=== PATIENT | female | born 1960 | race African-American/Black ===

== ENCOUNTER 2019-03-28 16:56 | Emergency (ER) | payer SELFPAY ==
[~2019-03-28] VITALS: Ht 157.5 cm; Wt 74.4 kg
[2019-03-28 17:35] VITALS: BP 141/93
--- NOTE | 2019-03-28 17:35 | NUR ---
ED Nurse Note: pt walked in to Ed due to SOB and asthma attack for 3 days. per pt, run out of inhaler. wheezing audiable. RT called for breathing tx. AAO x4. respirations even and non-labored noted. maintained >94% in RA. will wait for the further order.
[2019-03-28] MEDS: Albuterol/Ipratropium 3ml neb HHN SCH ×3 (18:03→18:24)
--- NOTE | 2019-03-28 18:14 | Emergency Room Report ---
History of Present Illness General Chief Complaint: Asthma Source: Patient Present Illness HPI 58-year-old female with significant history of asthma here complaining of asthma exacerbation she has run out of her albuterol inhaler. Patient is actively wheezing however denies cough and congestion. Denies fever and chills , palpitation, chest pain. Also complains of a pruritic and burning sensation rash on the right upper back x4 days. Reports that she had a tingling sensation prior to the appearance of rash. Denies pain radiation, and has not taken medication for symptom relief. Allergies: Coded Allergies: CITRIC ACID (Verified Allergy, Unknown, 03/28/19) CODEINE (Verified Allergy, Unknown, 03/28/19) Patient History Past Medical History: see triage record Past Surgical History: unable to obtain Pertinent Family History: none Last Menstrual Period: a year ago Now: No Immunizations: UTD Reviewed Nursing Documentation: PMH: Agreed; PSxH: Agreed Nursing Documentation-PMH Past Medical History: No History, Except For Hx Asthma: Yes Review of Systems All Other Systems: negative except mentioned in HPI Physical Exam Vital Signs Date Time Temp Pulse Resp B/P (MAP) Pulse Ox O2 Delivery O2 Flow Rate FiO2 03/28/19 17:28 98.4 83 16 141/93 (109) 95 Room Air 03/28/19 18:01 21 Sp02 EP Interpretation: reviewed, normal General Appearance: no apparent distress, alert, GCS 15, non-toxic Head: normocephalic, atraumatic Eyes: bilateral eye normal inspection, bilateral eye PERRL ENT: hearing grossly normal, normal pharynx, no angioedema, normal voice Neck: full range of motion, supple, thyroid normal, no meningismus, supple/symm /no masses Respiratory: chest non-tender, no rhonchi, no retraction, no accessory muscle use, speaking full sentences, wheezing - Diffuse Cardiovascular #1: regular rate, rhythm, no edema, no murmur Gastrointestinal: normal bowel sounds, non tender, soft, non-distended, no guarding, no rebound Genitourinary: no CVA tenderness Musculoskeletal: back normal, gait/station normal, normal range of motion, non- tender, no calf tenderness Neurologic: normal inspection, alert, oriented x3 Psychiatric: judgement/insight normal, memory normal, mood/affect normal, no suicidal/homicidal ideation Skin: rash - Multiple vesicles on erythematous base noted on right upper back Lymphatic: normal inspection, no adenopathy Medical Decision Making PA Attestation All diagnoses and treatment plans were reviewed and discussed with my supervising physician Dr. Sam Diagnostic Impression: Primary Impression: Asthma exacerbation Additional Impression: Shingles ER Course 58-year-old female with significant history of asthma here complaining of asthma exacerbation she has run out of her albuterol inhaler. Patient is actively wheezing however denies cough and congestion. Denies fever and chills , palpitation, chest pain. Also complains of a pruritic and burning sensation rash on the right upper back x4 days. Reports that she had a tingling sensation prior to the appearance of rash. Denies pain radiation, and has not taken medication for symptom relief. Ddx considered but are not limited to: Asthma observation, bronchitis, PNA, URI viral, bacterial bronchitis, shingles, scabies, contact dermatitis Vital signs: are WNL, pt. is afebrile H&PE are most consistent with: Asthma exacerbation, shingles ORDERS: Acyclovir, albuterol inhaler, prednisone ED INTERVENTIONS: DuoNeb, prednisone DISCHARGE: At this time pt. is stable for d/c to home. Will provide printed patient care instructions, and any necessary prescriptions. Care plan and follow up instructions have been discussed with the patient prior to discharge. Patient to follow-up with primary care provider, take medication as directed, if worsening symptoms return to the emergency room. At this time no chest x- ray is needed as patient been coughing and just very faint diffuse wheezing noted. Last Vital Signs Date Time Temp Pulse Resp B/P (MAP) Pulse Ox O2 Delivery O2 Flow Rate FiO2 03/28/19 18:01 79 18 95 Room Air 21 03/28/19 17:35 98.4 141/93 Disposition: HOME, SELF-CARE Condition: Stable Scripts Prednisone* (PREDNISONE*) 20 Mg Tablet 40 MG ORAL DAILY for 5 Days, #10 TAB Prov: Elisa Shelton 03/28/19 Albuterol Sulfate (VENTOLIN HFA) 18 Gm Hfa.aer.ad 2 PUFFS INH EVERY 6 HOURS, #18 GM 0 Refills Prov: Elisa Shelton 03/28/19 Acyclovir* (ZOVIRAX*) 800 Mg Tablet 800 MG ORAL FIVE TIMES A DAY for 7 Days, #35 TAB Prov: Elisa Shelton 03/28/19 Patient Instructions: Asthma, Adult, Shingles, [id number] Additional Instructions: Take medication as directed, follow-up with your primary care provider, if worsening symptoms return to the emergency room Elisa Shelton Mar 28, 2019 18:13
[2019-03-28] MEDS ORDERED: VENTOLIN HFA18 GM INH (18:15)
[2019-03-28] MEDS ORDERED: ACYCLOVIR800 MG ORAL (18:15)
[2019-03-28] MEDS ORDERED: PREDNISONE20 MG ORAL (18:15)
[2019-03-28 18:33] VITALS: BP 133/91
--- NOTE | 2019-03-28 18:34 | NUR ---
ER DISCHARGE NOTE: Patient is cleared to be discharged per ERMD, pt is aox4, on room air, with stable vital signs. pt was given dc and prescription instructions, pt was able to verbalize understanding, pt id band removed without complications. pt is able to ambulate with steady gait. pt took all belongings.
== END 2019-03-28 18:35 | disposition home or self-care (01) ==
LOC: EMR 17:50
DX: J45.901 Unspecified asthma with (acute) exacerbation (principal); B02.9 Zoster without complications; Z88.8 Allergy status to other drugs, medicaments and biological substances; Z88.6 Allergy status to analgesic agent; Z79.51 Long term (current) use of inhaled steroids
CPT/HCPCS: 94640; 94664; 99284; J7512; J7620